=== PATIENT | male | born 1990 | race Caucasian/White ===

== ENCOUNTER 2024-03-18 15:44 | Outpatient (CLI) | payer OTHER, SELFPAY | END 2024-03-18 15:45 | disposition home or self-care (01) | PROVIDERS: PCP Internal Medicine; Visit Provider Internal Medicine | DX: R53.83 Other fatigue (principal); R47.81 Slurred speech; R06.02 Shortness of breath | CPT/HCPCS: 80053; 84443 ==

== ENCOUNTER 2024-03-22 09:26 | Outpatient (RCR) | payer OTHER, SELFPAY ==
--- NOTE | 2024-03-22 16:05 | SLP.EVAL ---
Dr. Manley Please review, sign and return. Thanks Malissa Miller, FLIGHT CREW SCHEDULER FLIGHT CREW SCHEDULER Eval FLIGHT [employer]W SCHEDULER Eval Start: 03/22/24 11:03 Freq: Status: Active Protocol: Document 03/22/24 11:03 GENESIS (Rec: 03/22/24 11:33 [email or web address] [id number]) E-signed By Malissa Miller, RUTHIE, FLIGHT CREW SCHEDULER FLIGHT [employer]W SCHEDULER System Review History & Reason For Referral Type of Speech Evaluation Communication Evaluation Rehabilitation Order Evaluation and Treat Date of Order 03/18/24 Reason for Referral slurred speech Medical Diagnosis slurred speech Treatment Diagnosis dysarthria Hearing Information Hearing Status within normal Vision Information Vision Status within normal Patient Orientation Orientation & Mental Status within normal FLIGHT [employer]W SCHEDULER Initial Assessment/POC Subjective Information Subjective/Pain Comment Patient independently ambulated to the therapy room. Assessment & Impression Assessment/Impression Patient is a 33 year old male referred for speech therapy due to slurring of speech. He reports it started happening about 6-8 months ago which was also the time he started a new job. He feels like he is running out of breath and his words get slurred. He especially has difficulty with longer words and is needing to slow himself down. He has been trying to take in larger breaths before he speaks. ORAL MOTOR FUNCTION Patient able to adequately move tongue and lips. He does not have a history of speech therapy as a child. He is dyslexic. SPEECH Patient exhibits intermittent slurring of speech on longer words. Noticed some sound specific difficulties such as /sh/, /ch/, /r/ especially in multi syllable words. IMPRESSIONS AND RECOMMENDATIONS Patient exhibits intermittent slurring of speech on longer words and ends of sentences. It is unclear why this is happening. Recommend direct outpatient speech therapy to help improve speech. Recommend patient purchase EMST 150 expiratory muscle strength program trainer and we will use that in speech therapy. 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 SHORT TERM GOALS 1)Patient will be able to state and use strategies to decrease slurring. 2)Patient will be able to complete EMST 150 protocol . Intervention Plan & Frequency Intervention Plan Direct outpatient speech therapy, 1-2 times a week x10 weeks Frequency/Duration 1-2 times a week x10 weeks Discharge Plan Patient Will be Discharged from Therapy Completion of LTG(s),Skills Plateau,Independent w/HEP, Independently Progressing Therapist Signature & License # I Certify That Therapy Services Provided Therapist Signature & License Number Malissa Miller, [facility]-FLIGHT CREW SCHEDULER, # [id number] Certification Date Date of First Visit for Therapy 03/22/24 Recertification Due Date 06/17/24 Physician Signature Signature of Physician Indicates Treatment Plan,Certification Plan,Medically Needed Services Physician Signature & Date Required Please Sign/Date Here Speech/Language Pathology Billing Units Billing Units Eval Speech Sound Production 1
== END 2024-07-20 23:59 | disposition home or self-care (01) ==
PROVIDERS: PCP Internal Medicine; Visit Provider Internal Medicine
DX: R47.81 Slurred speech (principal); Z51.89 Encounter for other specified aftercare
CPT/HCPCS: 92522

== ENCOUNTER 2024-04-01 13:59 | Outpatient (CLI) | payer OTHER, SELFPAY ==
--- NOTE | 2024-04-01 14:30 | CRLHL7_ITS ---
For Patients: As a result of the Century Cures Act, medical imaging exams and procedure reports are released immediately into your electronic medical record. You may view this report before your referring provider. If you have questions, please contact your health care provider. INDICATION: Slurred speech. TECHNIQUE: Brain MRI with and without contrast. 17 cc gadolinium based contrast administered. COMPARISON: Sinus CT from 01/18/2016. FINDINGS: No evidence of acute ischemia. No evidence of acute or chronic intracranial blood products. No mass or pathologic intracranial enhancement. Few small FLAIR hyperintense foci scattered within the supratentorial white matter, typical for chronic microvascular ischemic change. No hydrocephalus or extra-axial collections. The pituitary gland, parasellar structures and optic chiasm are normal. Posterior fossa is normal. All the major intracranial vascular structures demonstrate normal flow-related signal. The orbital contents are normal. No calvarial or skull base marrow signal abnormality. No obstructive sinus disease. No extracranial soft tissue findings. IMPRESSION: 1. No acute infarction or other acute intracranial pathology. 2. No mass or pathologic intracranial enhancement. 3. Minimal chronic microvascular ischemic changes. Dictated by Gutierrez Byrd MD @ 04/02/2024 11:38:55 AM (Electronically Signed)
== END 2024-04-01 14:00 | disposition home or self-care (01) ==
PROVIDERS: PCP Internal Medicine; Visit Provider Internal Medicine
DX: R47.81 Slurred speech (principal); I67.82 Cerebral ischemia
CPT/HCPCS: 70553; A9575

== ENCOUNTER 2024-12-03 14:25 | Outpatient (CLI) | payer OTHER, SELFPAY ==
--- NOTE | 2024-12-03 15:00 | CRLHL7_ITS ---
For Patients: As a result of the 21st Century Cures Act, medical imaging exams and procedure reports are released immediately into your electronic medical record. You may view this report before your referring provider. If you have questions, please contact your health care provider. INDICATION: Right vocal cord weakness. COMPARISON: None. TECHNIQUE: CT soft tissue neck with IV contrast. High CV T7-8, 93 cc IV. FINDINGS: Normal bilateral parotid and submandibular glands. Normal thyroid gland. No enlarged cervical lymph nodes. No supraclavicular superior mediastinal adenopathy. No enlarged lymph nodes within the visualized axilla. Nasopharynx and oropharynx are clear. No inflammation within the paravertebral fat pads or retropharyngeal space. Normal thickness of the epiglottis. Asymmetric thickening of the right aryepiglottic fold (series 3, image 45) consistent with right vocal cord paralysis. Allowing for slight motion artifact at the level of the glottis, there is medialization of the right vocal cord (series 3, images 47 and 48). Airway remains patent. Small 6 mm enhancing nodule posterior medial to the right thyroid lobe extending into the tracheoesophageal groove (series 3, image 59). Findings may represent a lymph node or small exophytic thyroid nodule. Additionally, there is a 10 x 6 mm soft tissue nodule along the right lateral margin of the trachea (series 3, image 67). It is uncertain if these lesions impinge upon the right recurrent laryngeal nerve. No mass within the visualized superior mediastinum. Normal alignment the cervical spine. No prevertebral soft tissue swelling. Visualized paranasal sinuses mastoid air cells are clear. IMPRESSION: 1. Asymmetric thickening of the right aryepiglottic fold and medialization of the right vocal cord consistent with reported right vocal cord paralysis. 2. As described, there are small nodules within the right tracheoesophageal groove and along the right lateral margin of the trachea which are indeterminate and may impinge upon the course of the right recurrent laryngeal nerve. 3. No superior mediastinal mass. 4. Remaining deep soft tissues of the neck are normal. 5. No enlarged lymph nodes within the remainder of the neck. No adenopathy elsewhere.. Please note that all CT scans at this facility use dose modulation, iterative reconstruction, and/or weight-based dosing when appropriate to reduce radiation dose to as low as reasonably achievable. Dictated by Cyril Hairston MD @ 12/06/2024 8:22:16 AM (Electronically Signed)
== END 2024-12-03 14:26 | disposition home or self-care (01) ==
PROVIDERS: PCP Internal Medicine; Visit Provider Otolaryngology
DX: J38.00 Paralysis of vocal cords and larynx, unspecified (principal); J39.8 Other specified diseases of upper respiratory tract
CPT/HCPCS: 70491; Q9967